=== PATIENT | male | born 1975 | race Caucasian/White ===

== ENCOUNTER 2016-11-16 11:36 | Emergency (ER) | payer BC ==
[~2016-11-16] VITALS: Ht 180.3 cm; Wt 89.1 kg
[~2016-11-16 11:36] MED LIST: C-LEXIN500 MG PO; CEPHALEXIN500 M2 PO; HYDROCHLOROTHIA1 T14 PO; NORCO 325 MG-51 TAB PO
[2016-11-16] MEDS ORDERED: TRAMADOL 50 MG TAB PO (11:44)
[2016-11-16] MEDS ORDERED: METOPROLOL SUCC50 M1 PO (14:19)
[2016-11-16] MEDS ORDERED: HCTZ 25MG25 MG PO (14:19)
[2016-11-16 14:36] VITALS: BP 172/98
== END 2016-11-16 14:29 | disposition home or self-care (01) ==
LOC: ED 11:36
DX: R06.4 Hyperventilation (principal); I10 Essential (primary) hypertension; F17.200 Nicotine dependence, unspecified, uncomplicated

== ENCOUNTER 2017-04-04 12:35 | Emergency (ER) | payer BC ==
[~2017-04-04] VITALS: Ht 180.3 cm; Wt 92.3 kg
[~2017-04-04 12:35] MED LIST changes: +HCTZ 25MG25 MG PO; +METOPROLOL SUCC50 M1 PO; +TRAMADOL 50 MG TAB PO
[2017-04-04] MEDS ORDERED: NEURONTIN300 M1 PO (13:01)
[2017-04-04] MEDS ORDERED: PROAIR HFA0.09 MG/AC IH (13:02)
[2017-04-04 13:40] LABS: EOS # 0.1 (0.04-0.40); EOS % 1.5 % (0.0-4.0); HEMATOCRIT 44.4 % (42.0-52.0); HEMOGLOBIN 15.5 g/dL (13.5-18.0); MEAN CELL VOLUME 96 fl (78-100); MEAN CORPUSCULAR HEMOGLOBIN 34 pg (27-31); MEAN CORPUSCULAR HGB CONC 35 g/dL (33-37); MEAN PLATELET VOLUME 8.2 fl (7.4-10.4); MONO # 0.5 (0.20-0.80); NEU # 4.4 (1.40-6.50); PLATELET COUNT 342 K/mm3 (130-400); RED BLOOD COUNT 4.62 M/mm3 (4.20-5.60); WHITE BLOOD COUNT 7.1 K/mm3 (4.8-10.8)
[2017-04-04 14:37] LABS: ERYTHROCYTE SEDIMENTATION RATE 2 mm/hr (0-15)
[2017-04-04] MEDS ORDERED: HYDROCODONE BIT1 T45 PO (14:45)
[2017-04-04] MEDS ORDERED: KETOROLAC TROME10 MG PO (14:45)
[2017-04-04 14:53] VITALS: BP 149/100
== END 2017-04-04 15:00 | disposition home or self-care (01) ==
LOC: ED 12:35
PROVIDERS: Family Medicine
DX: M54.2 Cervicalgia (principal); Z98.1 Arthrodesis status; I10 Essential (primary) hypertension; R29.898 Other symptoms and signs involving the musculoskeletal system
CPT/HCPCS: J1885

== ENCOUNTER → 2021-05-27 | Outpatient (CLI) | payer BC ==
[~2021-05-27] MED LIST changes: +HYDROCODONE BIT1 T45 PO; +KETOROLAC TROME10 MG PO; +NEURONTIN300 M1 PO; +PROAIR HFA0.09 MG/AC IH
[2021-05-27 14:48] LABS: BASO # 0.02 K/mm3 (0.02-0.10); EOS # 0.04 K/mm3 (0.04-0.40); EOS % 0.4 % (0.0-4.0); HEMATOCRIT 49.1 % (42.0-52.0); HEMOGLOBIN 17.1 g/dL (13.5-18.0); LYMPH# 2.09 K/mm3 (1.50-4.00); MEAN CELL VOLUME 93 fl (78-100); MEAN CORPUSCULAR HEMOGLOBIN 32 pg (27-31); MEAN CORPUSCULAR HGB CONC 35 g/dL (33-37); MEAN PLATELET VOLUME 8.5 fl (7.4-10.4); MONO # 0.57 K/mm3 (0.20-0.80); NEU # 8.54 K/mm3 (1.40-6.50); PLATELET COUNT 258 K/mm3 (130-400); RED BLOOD COUNT 5.27 M/mm3 (4.20-5.60); RED CELL DISTRIBUTION WIDTH 12.7 % (11.5-14.5); WHITE BLOOD COUNT 11.3 K/mm3 (4.8-10.8)
[2021-05-27 15:13] LABS: ALBUMIN 4.5 g/dL (3.5-5.0)
[2021-05-27 15:14] LABS: CALCIUM 9.3 mg/dL (8.3-10.5)
[2021-05-27 15:15] LABS: TOTAL PROTEIN 7.9 g/dL (6.4-8.3)
[2021-05-27 15:17] LABS: TOTAL BILIRUBIN 0.7 mg/dL (0.2-1.2)
== END ==
LOC: LAB 14:33
PROVIDERS: Family Medicine
DX: Z00.00 Encounter for general adult medical examination without abnormal findings (principal); E78.5 Hyperlipidemia, unspecified; M54.50 Low back pain, unspecified; I10 Essential (primary) hypertension

== ENCOUNTER → 2021-08-01 | Outpatient (CLI) | payer BC | LOC: RAD 15:39 | DX: M51.36 Other intervertebral disc degeneration, lumbar region (principal); Z98.890 Other specified postprocedural states ==

== ENCOUNTER → 2021-08-12 | Outpatient (CLI) | payer BC | LOC: RAD 14:44 | DX: M47.816 Spondylosis without myelopathy or radiculopathy, lumbar region (principal); M47.817 Spondylosis without myelopathy or radiculopathy, lumbosacral region ==

== ENCOUNTER → 2022-05-07 | Outpatient (CLI) | payer BC ==
[2022-05-07 16:35] LABS: URINE WBC 0 /hpf (0-3)
[2022-05-07 16:41] LABS: BASO # 0.02 K/mm3 (0.02-0.10); EOS # 0.15 K/mm3 (0.04-0.40); EOS % 1.7 % (0.0-4.0); HEMATOCRIT 47.1 % (42.0-52.0); HEMOGLOBIN 15.8 g/dL (13.5-18.0); LYMPH# 1.96 K/mm3 (1.50-4.00); MEAN CELL VOLUME 98 fl (78-100); MEAN CORPUSCULAR HEMOGLOBIN 33 pg (27-31); MEAN CORPUSCULAR HGB CONC 34 g/dL (33-37); MEAN PLATELET VOLUME 8.5 fl (7.4-10.4); MONO # 0.67 K/mm3 (0.20-0.80); PLATELET COUNT 219 K/mm3 (130-400); RED CELL DISTRIBUTION WIDTH 12.8 % (11.5-14.5); WHITE BLOOD COUNT 8.9 K/mm3 (4.8-10.8)
[2022-05-07 16:56] LABS: ALBUMIN 4.4 g/dL (3.5-5.0); POTASSIUM 4.3 mmol/L (3.5-5.1)
[2022-05-07 16:57] LABS: CALCIUM 9.4 mg/dL (8.3-10.5)
[2022-05-07 16:59] LABS: TOTAL PROTEIN 7.6 g/dL (6.4-8.3)
[2022-05-07 17:00] LABS: TOTAL BILIRUBIN 0.3 mg/dL (0.2-1.2)
[2022-05-07 17:02] LABS: PARTIAL THROMBOPLASTIN TIME 26.4 SECONDS (21.0-32.0); PROTHROMBIN TIME 10.4 SECONDS (9.0-12.0)
[2022-05-07 17:25] LABS: URINE APPEARANCE CLEAR; URINE COLOR YELLOW
[2022-05-07 17:26] LABS: URINE BILIRUBIN NEGATIVE (NEGATIVE); URINE BLOOD 50 ery/uL (NEGATIVE); URINE GLUCOSE NEGATIVE (NEGATIVE); URINE KETONE NEGATIVE (NEGATIVE); URINE LEUKOCYTE ESTERASE NEGATIVE (NEGATIVE); URINE MUCUS PRESENT (NOT PRESENT); URINE NITRATE NEGATIVE (NEGATIVE); URINE PROTEIN(semi-quant) NEGATIVE (NEGATIVE); URINE UROBILINOGEN NORMAL (NORMAL)
== END ==
LOC: RAD 16:05
PROVIDERS: Nurse Practitioner
DX: Z01.818 Encounter for other preprocedural examination (principal)